=== PATIENT | female | born 1955 | race Caucasian/White ===

== ENCOUNTER 2017-08-07 04:40 | Inpatient (IN) | payer MEDICARE, MEDICAID ==
[~2017-08-07] VITALS: Ht 165.1 cm; Wt 76.4 kg
[2017-08-07 05:23] LABS: CLARITY,URINE Clear (Clear); COLOR,URINE Yellow (Yellow); GLUCOSE, URINE Negative (Neg); KETONES,URINE Negative (Neg); LEUKOCYTE ESTERASE ,URINE Trace (Neg); NITRITES, URINE Negative (Neg); OCCULT BLOOD,URINE Negative (Neg); PH,URINE 5.5 (4.8-8.0); PROTEIN,URINE Negative (Neg); UROBILINOGEN,URINE 0.2 E.U/dL (0.2-1.0)
[2017-08-07 05:25] LABS: UA COLLECTION TYPE CLN CATCH MIDSTREAM
[2017-08-07 05:28] LABS: BASOPHILS % (AUTO) 0.4 % (0-1); EOSINOPHILS # (AUTO) 0.4 X10'3 (0-0.9); EOSINOPHILS % (AUTO) 3.4 % (0-6); HEMOGLOBIN 15.2 g/dl (12.0-16.0); LYMPHOCYTES # (AUTO) 2.8 X10'3 (1.1-4.8); LYMPHOCYTES % (AUTO) 23.1 % (21-51); MEAN CORPUSCULAR HEMOGLOBIN 31.3 PG (27.0-31.0); MEAN CORPUSCULAR HGB CONC 33.9 % (33.0-36.5); MEAN CORPUSCULAR VOLUME 92.5 FL (78-98); MEAN PLATELET VOLUME 9.3 FL (7.4-10.4); MONOCYTES # (AUTO) 0.7 X10'3 (0-0.9); MONOCYTES % (AUTO) 5.4 % (2-12); NEUTROPHILS # (AUTO) 8.2 X10'3 (1.8-7.7); NEUTROPHILS % (AUTO) 67.7 % (42-75); PLATELET COUNT 420 X10'3 (140-440); RED BLOOD COUNT 4.86 X10'6 (4.20-5.60); RED CELL DISTRIBUTION WIDTH 13.7 % (11.5-14.5); WHITE BLOOD COUNT 12.2 X10'3 (4.5-11.0)
[2017-08-07 05:29] LABS: BACTERIA,URINE NONE SEEN /HPF (Neg); MUCUS STRANDS NONE SEEN /LPF (Neg); RBC,URINE NONE SEEN /HPF (0-2); SQUAMOUS EPITHELIAL CELL,UR MODERATE /LPF (FEW); WBC,URINE NONE SEEN /HPF (0-4)
[2017-08-07 05:32] LABS: PROTHROMBIN TIME 9.9 SECONDS (9.0-12.0)
[2017-08-07 05:46] LABS: ALANINE AMINOTRANSFERASE 23 U/L (12-78); ALBUMIN 4.3 G/DL (3.4-5.0); ALKALINE PHOSPHATASE 122 IU/L (46-116); ANION GAP 13 (8-16); ASPARTATE AMINO TRANSFERASE 20 U/L (10-37); BILIRUBIN,TOTAL 0.4 MG/DL (0.1-1.0); BLOOD UREA NITROGEN 33 MG/DL (7-18); BUN/CREATININE RATIO 18.8 (6.6-38.0); CALCIUM 9.9 MG/DL (8.5-10.1); CHLORIDE 97 MMOL/L (99-107); CREATININE 1.76 MG/DL (0.40-0.90); GLUCOSE 98 MG/DL (70-104); LIPASE 287 U/L (73-393); POTASSIUM 3.9 MMOL/L (3.5-5.1); SODIUM 137 MMOL/L (135-145); TOTAL CARBON DIOXIDE 26.6 MMOL/L (24-32); TOTAL PROTEIN 8.6 G/DL (6.4-8.2); eGFR 29 ML/MIN
[2017-08-07] MEDS ORDERED: ondansetron/PF 4mg/2ml inj IV ONE (06:15)
[2017-08-07] MEDS ORDERED: normal saline 1000ML IV soln IVB ONE (06:15)
[2017-08-07] MEDS ORDERED: MORPHINE 2MG in 2ml NS syringe IV PRN (06:15)
[2017-08-07] MEDS ORDERED: LIDOcaine Viscous 15ml cup PO ONE (06:40)
[2017-08-07] MEDS ORDERED: mag hydrox/Alum hydrox/simeth 30ml oral suspension PO ONE (06:40)
[2017-08-07] MEDS ORDERED: sucralfate 1gm/10ml UD suspension PO STA (06:40)
[2017-08-07] MEDS ORDERED: LOSA1TAB41 PO (09:05)
[2017-08-07] MEDS ORDERED: AMLO-94 PO (09:05)
[2017-08-07] MEDS ORDERED: MELO-102 PO (09:05)
[2017-08-07] MEDS ORDERED: POTA8TAB3 PO (09:13)
[2017-08-07] MEDS ORDERED: FURO-150 PO (09:13)
[2017-08-07] MEDS ORDERED: acetaminophen 325mg tablet PO PRN ×2 (09:35)
[2017-08-07] MEDS ORDERED: mag hydrox/Alum hydrox/simeth 30ml oral suspension PO PRN (09:35)
[2017-08-07] MEDS ORDERED: ondansetron/PF 4mg/2ml inj IV PRN (09:35)
[2017-08-07] MEDS ORDERED: morphine 4 MG/ML inj SYRINge IV PRN (09:35)
[2017-08-07] MEDS ORDERED: magnesium hydroxide 30ml (MOM) UD suspension PO PRN (09:35)
[2017-08-07] MEDS ORDERED: hydrALAZINE 20mg/ml inj. IV PRN (09:40)
[2017-08-07] MEDS: morphine 4 MG/ML inj SYRINge IV PRN ×2 (11:16→19:45)
[2017-08-07] MEDS: pantoprazole 40 MG vial IV SCH (11:19)
[2017-08-07] MEDS: normal saline 1000ml 1,000 ML IV SCH ×2 (11:19→19:45)
[2017-08-07] MEDS: amLODIPine 5mg tablet PO SCH (11:21)
[2017-08-07 12:13] VITALS: BP 146/65
[2017-08-07 20:00] VITALS: BP 142/72
[2017-08-07] MEDS ORDERED: temazepam 15mg capsule PO PRN (21:00)
[2017-08-08] VITALS: BP 115/64
[2017-08-08] MEDS: morphine 4 MG/ML inj SYRINge IV PRN ×2 (04:29→11:14)
[2017-08-08] MEDS: normal saline 1000ml 1,000 ML IV SCH ×2 (05:31→08:47)
[2017-08-08 06:09] LABS: BASOPHILS # (AUTO) 0.1 X10'3 (0-0.2); BASOPHILS % (AUTO) 0.8 % (0-1); EOSINOPHILS # (AUTO) 0.5 X10'3 (0-0.9); EOSINOPHILS % (AUTO) 6.6 % (0-6); HEMATOCRIT 39.9 % (35.0-45.0); HEMOGLOBIN 13.4 g/dl (12.0-16.0); LYMPHOCYTES # (AUTO) 3.3 X10'3 (1.1-4.8); LYMPHOCYTES % (AUTO) 41.7 % (21-51); MEAN CORPUSCULAR HEMOGLOBIN 31.5 PG (27.0-31.0); MEAN CORPUSCULAR HGB CONC 33.7 % (33.0-36.5); MEAN CORPUSCULAR VOLUME 93.7 FL (78-98); MEAN PLATELET VOLUME 9.5 FL (7.4-10.4); MONOCYTES # (AUTO) 0.5 X10'3 (0-0.9); MONOCYTES % (AUTO) 5.9 % (2-12); NEUTROPHILS # (AUTO) 3.5 X10'3 (1.8-7.7); PLATELET COUNT 354 X10'3 (140-440); RED BLOOD COUNT 4.26 X10'6 (4.20-5.60); RED CELL DISTRIBUTION WIDTH 13.7 % (11.5-14.5); WHITE BLOOD COUNT 7.9 X10'3 (4.5-11.0)
[2017-08-08 06:26] LABS: ALBUMIN 3.1 G/DL (3.4-5.0); ANION GAP 9 (8-16); BLOOD UREA NITROGEN 18 MG/DL (7-18); CALCIUM 8.7 MG/DL (8.5-10.1); CHLORIDE 106 MMOL/L (99-107); CREATININE 1.06 MG/DL (0.40-0.90); GLUCOSE 87 MG/DL (70-104); POTASSIUM 3.8 MMOL/L (3.5-5.1); SODIUM 142 MMOL/L (135-145); TOTAL CARBON DIOXIDE 27.4 MMOL/L (24-32); eGFR 53 ML/MIN
[2017-08-08 07:00] VITALS: BP 157/80
[2017-08-08] MEDS: amLODIPine 5mg tablet PO SCH (08:14)
[2017-08-08] MEDS: pantoprazole 40 MG vial IV SCH (08:41)
[2017-08-08 11:11] VITALS: BP 157/80
[2017-08-08] MEDS ORDERED: OMEP20CA10 PO (15:38)
[2017-08-08] MEDS ORDERED: ACET-812 PO (16:08)
== END 2017-08-08 17:50 | disposition home or self-care (01) | DRG 682 ==
LOC: ER 04:40 → ED HOLD 09:31 → SUR 3N 12:10
PROVIDERS: ADMIT Family Medicine; ATTEND Family Medicine
DX: N17.9 Acute kidney failure, unspecified (principal); R65.11 Systemic inflammatory response syndrome (SIRS) of non-infectious origin with acute organ dysfunction; D68.0 Von Willebrand disease; N83.202 Unspecified ovarian cyst, left side; I10 Essential (primary) hypertension; E86.0 Dehydration; K52.9 Noninfective gastroenteritis and colitis, unspecified; G89.29 Other chronic pain; F12.90 Cannabis use, unspecified, uncomplicated; F17.210 Nicotine dependence, cigarettes, uncomplicated; G47.00 Insomnia, unspecified; M19.90 Unspecified osteoarthritis, unspecified site; Z82.3 Family history of stroke; Z90.49 Acquired absence of other specified parts of digestive tract; Z88.0 Allergy status to penicillin; Z98.51 Tubal ligation status; Z88.6 Allergy status to analgesic agent; Z82.49 Family history of ischemic heart disease and other diseases of the circulatory system; Z82.5 Family history of asthma and other chronic lower respiratory diseases
CPT/HCPCS: 36415; 74176; 76856; 80048; 80053; 81001; 83690; 84484; 85025; 85610; 87070; 87088; 96361; 96374; 96375; 99285; C9113; J2270; J2274; J2405; J7030

== ENCOUNTER 2022-02-02 01:13 | Emergency (ER) | payer BC, MEDICAID ==
[~2022-02-02] VITALS: Ht 162.6 cm; Wt 68.2 kg
[~2022-02-02 01:13] MED LIST: AMLO10TA13 PO; ATOR20TA PO; FURO-150 PO; HYDR-3972 PO; LACT1CAP55 PO; LOSA1TAB41 PO; PANT40TA54 PO; POTA8TAB69 PO
[2022-02-02 03:45] LABS: BASOPHILS % (AUTO) 0.7 % (0-1); EOSINOPHILS # (AUTO) 0.1 X10'3 (0-0.9); LYMPHOCYTES # (AUTO) 2.5 X10'3 (1.1-4.8); MEAN CORPUSCULAR HGB CONC 33.5 g/dL (33.0-36.5); MONOCYTES # (AUTO) 0.6 X10'3 (0-0.9); MONOCYTES % (AUTO) 9.7 % (2-12)
[2022-02-02 03:46] LABS: CLARITY,URINE CLEAR (Clear); COLOR,URINE YELLOW (Yellow); GLUCOSE, URINE NEGATIVE (Neg); KETONES,URINE NEGATIVE (Neg); LEUKOCYTE ESTERASE ,URINE NEGATIVE (Neg); NITRITES, URINE NEGATIVE (Neg); OCCULT BLOOD,URINE NEGATIVE (Neg); PROTEIN,URINE NEGATIVE (Neg); UROBILINOGEN,URINE 0.2 E.U/dL (0.2-1.0)
[2022-02-02 03:47] LABS: UA COLLECTION TYPE STRAIGHT CATH
[2022-02-02 03:47] LABS: EOSINOPHILS % (AUTO) 2.1 % (0-6); HEMATOCRIT 57.8 % (35.0-45.0); LYMPHOCYTES % (AUTO) 37.5 % (21-51); MEAN CORPUSCULAR HEMOGLOBIN 32.1 PG (27.0-31.0); MEAN CORPUSCULAR VOLUME 95.7 FL (78-98); MEAN PLATELET VOLUME 8.5 FL (7.4-10.4); NEUTROPHILS # (AUTO) 3.3 X10'3 (1.8-7.7); PLATELET COUNT 358 X10'3 (140-440); RED BLOOD COUNT 6.04 X10'6 (4.20-5.60); RED CELL DISTRIBUTION WIDTH 14.1 % (11.5-14.5); WHITE BLOOD COUNT 6.5 X10'3 (4.5-11.0)
[2022-02-02 03:52] LABS: HEMOGLOBIN 19.4 g/dl (12.0-16.0)
[2022-02-02 03:53] LABS: ALANINE AMINOTRANSFERASE 25 U/L (12-78); ALBUMIN 3.1 G/DL (3.4-5.0); ALBUMIN/GLOBULIN RATIO 0.7 (1.1-1.5); ALKALINE PHOSPHATASE 114 IU/L (46-116); ANION GAP 9 (8-16); ASPARTATE AMINO TRANSFERASE 17 U/L (10-37); BILIRUBIN,TOTAL 0.3 MG/DL (0.1-1.0); BLOOD UREA NITROGEN 20 MG/DL (7-18); BUN/CREATININE RATIO 19.4 (6.6-38.0); CHLORIDE 103 MMOL/L (99-107); CREATININE 1.03 MG/DL (0.40-0.90); D-DIMER 0.65 MG/L FEU (0-0.50); GLUCOSE 101 MG/DL (70-104); POTASSIUM 4.1 MMOL/L (3.5-5.1); SODIUM 136 MMOL/L (135-145); TOTAL CARBON DIOXIDE 23.7 MMOL/L (24-32); TOTAL PROTEIN 7.5 G/DL (6.4-8.2); eGFR 54 ML/MIN
[2022-02-02 04:01] LABS: MAGNESIUM 1.8 MG/DL (1.5-2.4)
--- NOTE | 2022-02-02 04:40 | NUR ---
PT. SLEEPING WITHOUT DISTRESS OBSERVED.
[2022-02-02 05:02] LABS: ETHANOL 0.094 GM/DL (0.0-0.010)
[2022-02-02 06:02] VITALS: BP 143/74
[2022-02-02 12:30] LABS: URINE AMPHETAMINE SCREEN POSITIVE (Neg); URINE BARBITUATE SCREEN NEGATIVE (Neg); URINE BENZODIAZEPINES SCREEN NEGATIVE (Neg); URINE CANNABINOID SCREEN POSITIVE (Neg); URINE COCAINE SCREEN NEGATIVE (Neg); URINE METHADONE SCREEN NEGATIVE (Neg); URINE OPIATE SCREEN POSITIVE (Neg); URINE PHENCYCLIDINE SCREEN NEGATIVE (Neg)
== END 2022-02-02 06:07 | disposition home or self-care (01) ==
LOC: ER 01:14
DX: F10.129 Alcohol abuse with intoxication, unspecified (principal); I10 Essential (primary) hypertension; G89.29 Other chronic pain; F12.90 Cannabis use, unspecified, uncomplicated; Z88.0 Allergy status to penicillin; Y90.9 Presence of alcohol in blood, level not specified
CPT/HCPCS: 36415; 71045; 80053; 80305; 80320; 81003; 83735; 83880; 84484; 85025; 85379; 93005; 99285; A4353

== ENCOUNTER 2024-06-28 11:38 | Outpatient (CLI) | payer BC, MEDICAID ==
[~2024-06-28 11:38] MED LIST changes: +iohexol 350MG/ML 100ml bottle IV ONE
[2024-06-28 12:16] LABS: ALANINE AMINOTRANSFERASE 33 U/L (12-78); ALKALINE PHOSPHATASE 125 IU/L (46-116); ANION GAP 7 (8-16); ASPARTATE AMINO TRANSFERASE 19 U/L (10-37); BILIRUBIN,TOTAL 0.3 MG/DL (0.1-1.0); BLOOD UREA NITROGEN 22 MG/DL (7-18); BUN/CREATININE RATIO 18.5 (10.0-20.0); CHLORIDE 104 MMOL/L (99-107); CREATININE 1.19 MG/DL (0.40-0.90); GLUCOSE 84 MG/DL (70-104); POTASSIUM 4.3 MMOL/L (3.5-5.1); SODIUM 140 MMOL/L (135-145); TOTAL PROTEIN 7.9 G/DL (6.4-8.2); eGFR 45 ML/MIN
== END 2024-06-28 23:59 | disposition home or self-care (01) ==
LOC: RAD 11:38
PROVIDERS: ATTEND Family Medicine
DX: I77.1 Stricture of artery (principal); G45.8 Other transient cerebral ischemic attacks and related syndromes; I25.10 Atherosclerotic heart disease of native coronary artery without angina pectoris
CPT/HCPCS: 36415; 71275; 80053; Q9967